=== PATIENT | male | born 1950 ===

== ENCOUNTER 2018-10-18 09:09 | Day surgery (SDC) | payer OTHER ==
[~2018-10-18] VITALS: Ht 177.8 cm; Wt 107.0 kg
[~2018-10-18 09:09] MED LIST: ATOR20 PO; Aspirin EC81 MG; GLIM4; INVOKANA100 MG PO; LOSHYD PO; SILD25T; Vitamin D2000 UNIT PO
--- NOTE | 2018-10-18 09:58 | NUR ---
10/18/18 0958 Kortney Marshall 1 IV MISS IN RH BY LAURO VALVE 1 GOOD IV IN RAC BY LAURO ARMENTA
== END 2018-10-18 11:13 | disposition home or self-care (01) ==
LOC: ORSCSDS 09:09
PROVIDERS: Surgery
PROC: 0DBK8ZX Excision of Ascending Colon, Via Natural or Artificial Opening Endoscopic, Diagnostic (ICD-10-PCS; principal; 2018-10-18 10:30)
PROC: 0DBL8ZX Excision of Transverse Colon, Via Natural or Artificial Opening Endoscopic, Diagnostic (ICD-10-PCS; principal; 2018-10-18 10:30)
DX: Z12.11 Encounter for screening for malignant neoplasm of colon (principal); Z86.010 Personal history of colon polyps; D12.2 Benign neoplasm of ascending colon; D12.3 Benign neoplasm of transverse colon; K57.30 Diverticulosis of large intestine without perforation or abscess without bleeding; I10 Essential (primary) hypertension; E11.9 Type 2 diabetes mellitus without complications; E78.5 Hyperlipidemia, unspecified; Z79.899 Other long term (current) drug therapy; Z79.82 Long term (current) use of aspirin
CPT/HCPCS: 82947; 88305; J2704; J7120